=== PATIENT | male | born 1940 | race Caucasian/White ===

== ENCOUNTER 2024-10-20 09:39 | Emergency (ER) | payer MEDICAID, MEDICARE, OTHER ==
[2024-10-20 10:25] LABS: BASOPHILS PERCENT AUTO 0.2 % (0.1-1.3); EOSINOPHILS ABSOLUTE AUTO 0.15 K/uL (0.00-0.40); EOSINOPHILS PERCENT AUTO 2.3 % (0.0-5.4); HEMATOCRIT 34.3 % (38.4-49.7); HEMOGLOBIN 11.4 g/dL (12.9-16.9); IMMATURE GRAN ABSOLUTE AUTO 0.12 K/uL (0.00-0.23); IMMATURE GRAN PERCENT AUTO 1.9 % (0.0-0.7); LYMPHOCYTES ABSOLUTE AUTO 0.95 K/uL (0.8-3.3); LYMPHOCYTES PERCENT AUTO 14.8 % (11.4-47.7); MEAN CORPUSCULAR HEMOGLOBIN 31.8 pg (31.6-35.5); MEAN CORPUSCULAR HGB CONC 33.2 g/dL (31.6-35.5); MEAN CORPUSCULAR VOLUME 95.8 fL (81.4-99.0); MONOCYTES ABSOLUTE AUTO 2.16 K/uL (0.20-0.90); MONOCYTES PERCENT AUTO 33.7 % (3.3-12.6); NEUTROPHILS ABSOLUTE AUTO 3.02 K/uL (1.0-7.6); NEUTROPHILS PERCENT AUTO 47.1 % (40.0-78.1); PLATELET COUNT,PLT 111 K/uL (130-375); RED BLOOD CELL COUNT 3.58 M/uL (4.14-5.76); WHITE BLOOD CELL COUNT,WBC 6.4 K/uL (3.2-11.0)
[2024-10-20 10:28] LABS: COLOR,URINE OTHER (YELLOW)
[2024-10-20 10:29] LABS: AMORPHOUS SEDIMENT,URINE MODERATE; APPEARANCE,URINE TURBID (CLEAR); BACTERIA,URINE MANY; EPITHELIAL CELLS,URINE RARE; MUCUS,URINE FEW; RBC,URINE PACKED (0-5)
[2024-10-20 10:30] LABS: BASOPHILS ABSOLUTE AUTO 0.01 K/uL (0.00-0.10)
[2024-10-20 10:46] LABS: A/G RATIO 1.1 (1.2-2.2); ALANINE AMINOTRANSFERASE,ALT 27 U/L (12-78); ALBUMIN 4.1 g/dL (3.4-5.0); ALKALINE PHOSPHATASE 75 U/L (46-116); ANION GAP 12.9 mmol/L (5.0-14.0); ASPARTATE AMNIOTRANSFERASE,AST 45 U/L (15-37); BILIRUBIN TOTAL 1.1 mg/dL (0.2-1.0); BLOOD UREA NITROGEN,BUN 59 mg/dL (7-18); CALCIUM 9.4 mg/dL (8.5-10.1); CARBON DIOXIDE,CO2 22 mmol/L (21-32); CHLORIDE,CL 105 mmol/L (100-108); CREATININE 2.1 mg/dL (0.8-1.3); ESTIMATED GFR 31 mL/min (>60); GLUCOSE RANDOM 113 mg/dL (74-106); POTASSIUM,K 4.3 mmol/L (3.6-5.2); PROTEIN TOTAL,TP 7.8 g/dL (6.4-8.2); SODIUM,NA 140 mmol/L (140-148)
[2024-10-20] MEDS: Lidocaine 2% Jelly 10 ML Urojet MUCMEM ONE (11:00)
[2024-10-20 11:22] LABS: PROTHROMBIN TIME 10.7 sec (9.2-10.6)
[2024-10-20] MEDS: Sodium Chloride 0.9% 1,000 ML IV ONE (11:34)
== END 2024-10-20 14:00 | disposition home or self-care (01) ==
LOC: JP.ED 09:39
DX: R31.0 Gross hematuria (principal); R33.9 Retention of urine, unspecified; N32.9 Bladder disorder, unspecified; Z96.0 Presence of urogenital implants
CPT/HCPCS: 36415; 51702; 74176; 74176-26; 80053; 81001; 85025; 85610; 99284

== ENCOUNTER 2024-10-21 12:27 | Emergency (ER) | payer MEDICAID | END 2024-10-21 14:30 | disposition home or self-care (01) | LOC: JP.ED 12:27 | DX: T83.9XXA Unspecified complication of genitourinary prosthetic device, implant and graft, initial encounter (principal); I10 Essential (primary) hypertension; E78.00 Pure hypercholesterolemia, unspecified; Z87.891 Personal history of nicotine dependence; Z95.2 Presence of prosthetic heart valve; Z79.899 Other long term (current) drug therapy | CPT/HCPCS: 99283 ==

== ENCOUNTER 2024-10-22 19:33 | Emergency (ER) | payer MEDICAID, MEDICARE ==
[2024-10-22] MEDS: Phenazopyridine 95 MG Tab PO ONE (21:21)
== END 2024-10-22 21:40 | disposition home or self-care (01) ==
LOC: JP.ED 19:33
DX: T83.091A Other mechanical complication of indwelling urethral catheter, initial encounter (principal); N32.89 Other specified disorders of bladder; I10 Essential (primary) hypertension; E78.00 Pure hypercholesterolemia, unspecified; Z79.899 Other long term (current) drug therapy; Y73.2 Prosthetic and other implants, materials and accessory gastroenterology and urology devices associated with adverse incidents
CPT/HCPCS: 51702; 99283; A9270-GY

== ENCOUNTER 2024-10-31 09:57 | Emergency (ER) | payer MEDICARE ==
[2024-10-31 11:04] LABS: EOSINOPHILS ABSOLUTE AUTO 0.15 K/uL (0.00-0.40); EOSINOPHILS PERCENT AUTO 1.6 % (0.0-5.4); IMMATURE GRAN ABSOLUTE AUTO 0.18 K/uL (0.00-0.23); IMMATURE GRAN PERCENT AUTO 1.9 % (0.0-0.7); LYMPHOCYTES ABSOLUTE AUTO 0.94 K/uL (0.8-3.3); LYMPHOCYTES PERCENT AUTO 9.8 % (11.4-47.7); MEAN CORPUSCULAR HEMOGLOBIN 32.3 pg (31.6-35.5); MEAN CORPUSCULAR HGB CONC 33.3 g/dL (31.6-35.5); MEAN CORPUSCULAR VOLUME 96.8 fL (81.4-99.0); MONOCYTES ABSOLUTE AUTO 2.08 K/uL (0.20-0.90); MONOCYTES PERCENT AUTO 21.8 % (3.3-12.6); NEUTROPHILS ABSOLUTE AUTO 6.21 K/uL (1.0-7.6); NEUTROPHILS PERCENT AUTO 64.9 % (40.0-78.1); PLATELET COUNT,PLT 156 K/uL (130-375); RED BLOOD CELL COUNT 2.48 M/uL (4.14-5.76); WHITE BLOOD CELL COUNT,WBC 9.6 K/uL (3.2-11.0)
[2024-10-31 11:26] LABS: A/G RATIO 0.9 (1.2-2.2); ALANINE AMINOTRANSFERASE,ALT 23 U/L (12-78); ALBUMIN 3.2 g/dL (3.4-5.0); ALKALINE PHOSPHATASE 56 U/L (46-116); ASPARTATE AMNIOTRANSFERASE,AST 14 U/L (15-37); BILIRUBIN TOTAL 0.3 mg/dL (0.2-1.0); BLOOD UREA NITROGEN,BUN 42 mg/dL (7-18); CALCIUM 9.3 mg/dL (8.5-10.1); CARBON DIOXIDE,CO2 23 mmol/L (21-32); CHLORIDE,CL 105 mmol/L (100-108); CREATININE 1.7 mg/dL (0.8-1.3); EST CRCL DRUG DOSING (CG) 37.86 mL/min; ESTIMATED GFR 40 mL/min (>60); GLUCOSE RANDOM 120 mg/dL (74-106); POTASSIUM,K 4.9 mmol/L (3.6-5.2); PROTEIN TOTAL,TP 6.9 g/dL (6.4-8.2); SODIUM,NA 137 mmol/L (140-148); TROPONIN I HIGH SENSITIVITY 7.8 pg/mL (<=60.3)
[2024-10-31 11:27] LABS: ANION GAP 13.9 mmol/L (5.0-14.0)
== END 2024-10-31 12:55 | disposition home or self-care (01) ==
LOC: JP.ED 09:57
DX: I95.2 Hypotension due to drugs (principal); D50.0 Iron deficiency anemia secondary to blood loss (chronic); I10 Essential (primary) hypertension; E78.00 Pure hypercholesterolemia, unspecified; Z79.899 Other long term (current) drug therapy; Z87.891 Personal history of nicotine dependence
CPT/HCPCS: 36415; 80053; 84484; 85025; 93005; 99285